=== PATIENT | male | born 1995 | race Caucasian/White ===

== ENCOUNTER 2016-08-04 09:22 | Emergency (ER) | payer OTHER ==
[~2016-08-04] VITALS: Ht 177.8 cm; Wt 72.2 kg
[~2016-08-04 09:22] MED LIST: ABILIFY20 MG PO; ANUSOL-HC21 GM PR; FLEXERIL10 MG PO; FOCALIN XR20 MG PO; MEDROL DOSEPAK4 MG PO; NAPROSYN500 MG PO; PERCOCET 5/31 TABLET PO; PROMETHAZINE HC25 M1 PO; PROZAC10 MG PO; PROZAC20 MG PO; RITALIN10 MG PO; SEROQUEL50 MG; ULTRACET1 TABLET PO; ULTRAM50 MG PO; ZOLOFT50 MG
[2016-08-04] MEDS ORDERED: TRAZODONE HCL100 MG PO (09:38)
[2016-08-04] MEDS ORDERED: MOTRIN600 MG PO (11:42)
[2016-08-04] MEDS ORDERED: FLEXERIL5 MG PO (11:42)
[2016-08-04 11:48] VITALS: BP 98/57
== END 2016-08-04 11:48 | disposition home or self-care (01) ==
LOC: EME 09:22
DX: S06.0X0A Concussion without loss of consciousness, initial encounter (principal); S16.1XXA Strain of muscle, fascia and tendon at neck level, initial encounter; Y04.0XXA Assault by unarmed brawl or fight, initial encounter; F17.200 Nicotine dependence, unspecified, uncomplicated
CPT/HCPCS: 70450; 72040; 99281; 99284

== ENCOUNTER 2016-11-11 17:41 | Inpatient (IN) | payer OTHER ==
[~2016-11-11] VITALS: Ht 177.8 cm; Wt 68.0 kg
[~2016-11-11 17:41] MED LIST changes: +FLEXERIL5 MG PO; +MOTRIN600 MG PO; +TRAZODONE HCL100 MG PO
[2016-11-11 18:22] LABS: HEMATOCRIT 43.1 % (38.0-50.0); MCH 28.7 PG (29.0-34.0); MCHC 34.1 G/DL (30.0-36.0); PLATELET COUNT 176 K/uL (156-360); RBC DIS.WIDTH-CV 12.5 % (11.8-14.6); RBC DIS.WIDTH-SD 38.3 % (39-53); RED BLOOD COUNT 5.13 M/uL (4.00-5.50); WHITE BLOOD COUNT 8.8 K/uL (4.1-10.2)
[2016-11-11 18:31] LABS: CHLORIDE 104 mEq/L (99-109); POTASSIUM 3.4 mEq/L (3.7-5.4); SODIUM 138 mEq/L (136-147)
[2016-11-11 18:33] LABS: GLUCOSE 123 mg/dL (70-99)
[2016-11-11 18:34] LABS: ANION GAP 11 MEQ/L (2-14)
[2016-11-11 18:35] LABS: TOTAL BILIRUBIN 0.9 mg/dL (0.0-1.0)
[2016-11-11 18:36] LABS: SERUM ETHYL ALCOHOL < 10 mg/dL
[2016-11-11 18:37] LABS: ALKALINE PHOSPHATASE 60 IU/L (3-129); GFR ESTIMATE (CALCULATED) > 59 mL/min/
[2016-11-11 18:38] LABS: UREA NITROGEN (BUN) 21 mg/dL (9-23)
[2016-11-11] MEDS ORDERED: BUSPAR5 MG PO (20:26)
[2016-11-11] MEDS ORDERED: MIRTAZAPINE15 MG PO (20:27)
[2016-11-11] MEDS ORDERED: ABILIFY10 MG PO (20:27)
[2016-11-11] MEDS ORDERED: METHYLPHENIDATE10 M1 PO (20:27)
[2016-11-11] MEDS ORDERED: METHADONE10 MG/1 M1 PO (20:32)
[2016-11-11 20:45] VITALS: BP 132/84
[2016-11-12 07:30] VITALS: BP 142/66
[2016-11-12 16:06] VITALS: BP 120/67
[2016-11-13 08:00] VITALS: BP 126/71
[2016-11-13 16:12] VITALS: BP 114/59
[2016-11-14 07:51] VITALS: BP 110/55
== END 2016-11-14 11:45 | DRG 881 ==
LOC: EME 17:41 → EDOF 19:44 → 1WEST 19:44
PROVIDERS: Emergency Medicine
DX: F32.9 Major depressive disorder, single episode, unspecified (principal); F63.9 Impulse disorder, unspecified; F11.20 Opioid dependence, uncomplicated; R45.851 Suicidal ideations; Z56.0 Unemployment, unspecified; F12.90 Cannabis use, unspecified, uncomplicated; Z91.5 Personal history of self-harm; F17.200 Nicotine dependence, unspecified, uncomplicated
CPT/HCPCS: 80053; 81003; 85027; 90837; 97150 GO; 97165 GO; 99281; 99285; G0480

== ENCOUNTER 2016-12-15 20:29 | Emergency (ER) | payer OTHER ==
[~2016-12-15] VITALS: Ht 177.8 cm; Wt 69.5 kg
[~2016-12-15 20:29] MED LIST changes: +ABILIFY10 MG PO; +BUSPAR5 MG PO; +METHADONE10 MG/1 M1 PO; +METHYLPHENIDATE10 M1 PO; +MIRTAZAPINE15 MG PO
[2016-12-15 22:17] VITALS: BP 123/64
== END 2016-12-15 22:17 | disposition home or self-care (01) ==
LOC: EME 20:29
DX: S05.01XA Injury of conjunctiva and corneal abrasion without foreign body, right eye, initial encounter (principal); W22.8XXA Striking against or struck by other objects, initial encounter; Y92.481 Parking lot as the place of occurrence of the external cause; F17.200 Nicotine dependence, unspecified, uncomplicated
CPT/HCPCS: 99281; 99284

== ENCOUNTER → 2017-12-14 | Outpatient (CLI) | payer OTHER | END | disposition home or self-care (01) | LOC: CT 15:25 | DX: J98.4 Other disorders of lung (principal) | CPT/HCPCS: 74176 ==